=== PATIENT | male | born 1940 | race Caucasian/White ===

== ENCOUNTER 2019-12-28 00:03 | Inpatient (IN) | payer OTHER ==
[~2019-12-28] VITALS: Ht 170.2 cm; Wt 66.0 kg
[2019-12-28] MEDS ORDERED: LISINOPRIL20 MG PO (01:36)
[2019-12-28] MEDS ORDERED: TYLENOL325 MG PO (01:37)
[2019-12-28] MEDS ORDERED: LOPRESSOR50 MG PO (01:37)
[2019-12-28] MEDS ORDERED: COLACE100 MG PO (01:38)
[2019-12-28] MEDS ORDERED: TYLENOL EXTRA500 MG PO (01:39)
[2019-12-28] MEDS ORDERED: DICYCLOMINE HCL10 MG PO (01:40)
[2019-12-28] MEDS ORDERED: TRAZODONE HCL50 MG PO ×2 (01:43→01:45)
[2019-12-28] MEDS ORDERED: TRAZODONE HCL100 MG PO (01:44)
[2019-12-28 02:00] VITALS: BP 143/100
[2019-12-28] MEDS ORDERED: LIPITOR40 MG PO (02:31)
[2019-12-28] MEDS ORDERED: TRAMADOL 50 MG50 MG PO (02:31)
[2019-12-28] MEDS ORDERED: TOPROL XL50 MG PO (02:31)
[2019-12-28] MEDS ORDERED: XARELTO20 MG PO (02:32)
[2019-12-28] MEDS ORDERED: FOLIC ACID0.4 MG PO (02:32)
[2019-12-28] MEDS ORDERED: ASPIR 8181 MG PO (02:33)
[2019-12-28] MEDS ORDERED: FLOMAX0.4 MG PO (02:33)
[2019-12-28] MEDS ORDERED: VITAMIN B-12500 MCG PO (02:34)
[2019-12-28] MEDS ORDERED: BENADRYL ALLERG25 MG PO (02:35)
[2019-12-28] MEDS ORDERED: NAPROSYN500 M1 PO (02:35)
[2019-12-28] MEDS ORDERED: IBUPROFEN 800800 M1 PO (02:36)
[2019-12-28] MEDS ORDERED: ULTRAM50 MG PO (02:36)
[2019-12-28] MEDS ORDERED: PROAIR HFA8.5 GM INH (02:37)
[2019-12-28] MEDS ORDERED: ZOFRAN ODT4 MG DISSOLVE (02:37)
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
[2019-12-28 09:04] VITALS: BP 125/75
--- NOTE | 2019-12-28 15:22 | NUR ---
NOTED TO BE GRIMACING WITH ANY TYPE OF MOVEMENT WHEN ASSISTED OUT OF BED THIS AM-REQUIRES ASSIST OF 2-3 TO TRANSFER TO -FREQUENTLY ASKES TO USE URINAL AND HAS VOIDED APPROX 200-300 CC CLEAR YELLOW URINE VIA URINAL X 3 TODAY. REPORTS CHRONIC LOW BACK AND "ALL OVER" PAIN RATED A 9 ON 1-10 SCAL. REFUSES TO WALK MWITH PT HE WILL PICJ UP FEET OFF GROUND AND REFUSE TO STAND. DR. SIDHU CONTACTED AND ORDERS RECEIVED FOR TRAMADOL PRN-AWAITING MED FROM PHARMACY-CALLED X2. VS WNL-APPETITE GOOD-ORIENTED TO NAME ONLY.
[2019-12-28 19:39] VITALS: BP 155/66
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
[2019-12-28 23:09] VITALS: BP 155/66
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
--- NOTE | 2019-12-29 06:33 | NUR ---
Slept 6.6 hurs overnight. Used urinal in the night x3.
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
[2019-12-29 10:42] VITALS: BP 125/82
--- NOTE | 2019-12-29 15:14 | NUR ---
I heard a yell coming from the day room. I went to investigate, Jose Daniel was on the floor. I reviewed the video. Jose Daniel sitting in a w/c, he went to stand up and stepped over the leg of the w/c tripped and fell. VS B/P 135/[address] Abdalla was notified. The housekeeper cleaning cooking was notified. Jose Daniel c/o head ache. His pupils are equal and reactive. No injuries noted upon assessment.
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
[2019-12-29 22:31] VITALS: BP 125/82
--- NOTE | 2019-12-30 00:18 | NUR ---
Assumed care of patient this pm shift. Patient sitting in mileu in wheelchair. Patient irritable and states that he doesnt need help. Patient in hospital attire somewhat messy hair. Patient takes medications whole. Patient denies hi/si. Patients assessment shows clear breath sounds, active bowel sounds, and s1 s2 heard with auscultation. Patient needs constant redirection with cares. Patient is resistive towards staff. Patient has not been aggressive at this time. We will continue to monitor.
[2019-12-30 08:11] VITALS: BP 106/66
--- NOTE | 2019-12-30 13:52 | NUR ---
DINAH setn updatees to Nish Grijalva
--- NOTE | 2019-12-30 17:50 | NUR ---
Assumed care at 0700. Patient has few words, oriented to person, confused. Unable to specify pain location. Has been in the recliner out in the dayroom. Had a large yellow BM after lunch. He is compliant with medications. He does not initiate conversation. Mood is depressed with somber, sad affect.
[2019-12-30 22:01] VITALS: BP 140/78
--- NOTE | 2019-12-30 22:15 | NUR ---
Patient had 1 to 1 with RN at about 1819. He was informed to ask staff for help. He wanted to move to a different chair then would decline when other chairs/bed were offered. 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 Rn informed patient she would be back in touch with him shortly. Patient was left in dayroom in the recliner with wheels locked, sitting behind the sofa to view TV if he wanted. Nurse Aids Jaylin and Janelle were sitting at a table near and behind the patient. Per statement from Eduardo :"Patient attempted to stand up from his chair but forgot his legs are very weak and he slid under from the chair. He complained on (of) back pain after the fall. RN came to take vitals and assess the situation and patient. VS=T=98.3, P=65, R=15, WW=671/74, O2 sat=99%. Patient was transported to his room, assisted to bed and inspected for bruising/bleeding--none found. Family notified--sister Katharina Adhikari, who is a nurse; daughter Madison Head-medical DPOA. Sara, Pharmacist notified, awake overnight counselor notified, call placed into Dr. Rojas-after hours for courtesy notification. Nurse Umbrella Cutter Ghazala will be notified by text. Noteworthy: per sister-Katharina, the last facility told her that when patient did not realize staff were watching patient would walk about without difficulty, and that he used various objects in his home to hold onto to get around. Fall occurred 1829 tonight.
--- NOTE | 2019-12-31 00:35 | NUR ---
Assumed care of patient this pm shift. Patient irritable. Patients affect blunted. Patient denies hi/si. Patient is difficult to redirect. Patient has been bearing weight and walking from the bed to the bathroom. Patient has been notified to ask for help. Patient does not think he requires help. Patient is dressed neatly in hospital attire. Patient had a bowel movement this evening. Patient takes medications whole. Patients assessment shows clear breath sounds, active bowel sounds, and s1 s2 heard with auscultation. We will continue to monitor.
[2019-12-31 09:57] VITALS: BP 99/57
[2019-12-31 12:18] LABS: ABSOLUTE NEUTROPHILS 5.6 thou/uL (1.4-8.2); BASOPHILS 0.7 % (0.0-2.0); EOSINOPHILS 2.4 % (0.0-3.0); LYMPHOCYTES 20.1 % (24.0-44.0); MCH 31.5 pg (26.0-34.0); MCHC 33.2 g/dL (28.0-37.0); MONOCYTES 8.1 % (1.0-8.0); PLATELET COUNT 198 thou/uL (150-400); POLYS 68.7 % (36.0-66.0); RBC 4.11 mil/uL (4.50-6.00); RDW 14.6 % (10.5-14.5); WBC 8.1 thou/uL (4.0-11.0)
[2019-12-31 12:35] LABS: ALBUMIN 3.1 g/dL (3.4-5.0); ANION GAP 10 mmol/L (7-16); BUN 29 mg/dL (7-18); CALCIUM 9.6 mg/dL (8.5-10.1); CHLORIDE 104 mmol/L (98-107); CO2 24 mmol/L (21-32); CREATININE 1.3 mg/dL (0.7-1.3); GLUCOSE 76 mg/dL (74-106); POTASSIUM 4.3 mmol/L (3.5-5.1); SGOT 13 U/L (15-37); SGPT 17 U/L (30-65); SODIUM 138 mmol/L (136-145); TOTAL BILIRUBIN 0.5 mg/dL (<0.1-1.0); TOTAL PROTEIN 7.4 g/dL (6.4-8.2); TROPONIN-I <0.06 ng/mL (<0.06)
[2019-12-31 12:56] LABS: TSH 0.505 uIU/mL (0.358-3.740)
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
--- NOTE | 2019-12-31 14:26 | NUR ---
Assumed care at 0700. For over one hour various staff attempted to assist patient to the commode after lunch stating he would have to have a BM and urinate. He kept pshing the wheelchair away, yet wanting to use it for a stability prop, then holding the handles pulling it backwards. He made many references to wantin to take it apart and fix it. He was getting increasingly confsed. He complained of back pain. When the Tramadol and Olanzapine PO, PRN were brought to the patient he deaclined them stating they would not do any good. He was given a shot left deltoid-Olanzapine 5 mg.PRN-IM.
--- NOTE | 2019-12-31 16:33 | NUR ---
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
--- NOTE | 2019-12-31 18:00 | NUR ---
Assumed care at 0700. Compliant with AM meds. In the afternoon staff worked with him for about an hour trying to assist him with toileting--he was very resistive, wanting to do the opposite of what was best for him. He wants to transfer himself but without aid of staff. He gets easily frustrated, angry, cussing staff, doesn't like gait belt. Lap Kristi order was obtained and used. He seemed to settle down, lap kristi removed to test him. He kneeled down on the floor, assisted back to his w/c and lap kristi reapplied. No injury observed. During dinner he was removed from his dinner table for abd. x-ray, returned to table to finish his dinner. He was resistant to do this but held still for the test. EKG and Lab were done. A UA order was acknowledged and not obtained before shift change--passed on to next shift for collection.
[2019-12-31 19:38] VITALS: BP 102/54; BP 82/45
--- NOTE | 2020-01-01 01:30 | NUR ---
ASSESSMENT: PT REMAIN ALERT AND ORIENT TIMES TWO, CONFUSED TO PLACE/SITUATION. BEING COOPERATIVE FOR THE MOST PART DURING THE NIGHT. UA PENDING. UP IN WC IN THE DAYROOM FOR 2 HOURS. NO FALLS THIS SHIFT, BED AND WC ALARM SET. TRAMADOL GIVEN FOR GENERALIZED PAIN. OLANZAPINE GIVEN FOR SLIGHT AGITATION AT THE BEGINNING OF THE SHIFT. HR 64. DENIES CP AND SOB. NO AGGRESSIVE BEHAVIOR THIS SHIFT. SLOW PROGRESS TOWARDS DC GOALS, WILL CONTINUE TO MONITOR.
[2020-01-01 07:17] VITALS: BP 121/44
[2020-01-01 11:39] LABS: URINE BILIRUBIN NEGATIVE (Negative); URINE BLOOD 1+ (Negative); URINE CLARITY CLEAR; URINE COLOR YELLOW; URINE GLUCOSE-RANDOM* NEGATIVE (Negative); URINE KETONES NEGATIVE (Negative); URINE LEUKOCYTES-REFLEX NEGATIVE (Negative); URINE NITRITE-REFLEX NEGATIVE (Negative); URINE PROTEIN (DIPSTICK) NEGATIVE (Negative); URINE UROBILINOGEN 0.2 E.U./dl (0.2-1.0)
[2020-01-01 11:56] LABS: BACTERIA-REFLEX None Seen /HPF (None Seen); CRYSTALS None Seen /LPF (None Seen); HYALINE CASTS 0-3 Few /LPF (None Seen); SQUAMOUS None Seen /LPF (0-3); URINE RBC None Seen /HPF (0-2); URINE WBC-REFLEX None Seen /HPF (0-5)
--- NOTE | 2020-01-01 13:00 | EKG ---
[facility] [place] [address] ELECTROCARDIOGRAM REPORT Name: JESUS CARDONA Room #: [facility] ADM IN M.R.#: [id number] Admission: 12/28/19 Attend Phys: Edd Abdalla DO Discharge: Date of : 38 Report #: [id number] THIS REPORT FOR: cc: [facility] - Clinic physician unknown [facility] - Clinic physician unknown Hunter Porter MD ~ THIS REPORT FOR: //name// [facility] Test Date: 2019-12-30 Test Time: 10:58:27 Pat Name: JESUS CARDONA Department: Room: [facility] Gender: M Veterinarian Epidemiologist: LAURA : 1940 Requested By: Ayo Rojas Order Number: [id number] MD: Hunter Porter Measurements Intervals [place] Rate: 90 P: NE: QRS: 57 QRSD: 100 T: 43 QT: 386 QTc: 473 Interpretive Statements Atrial fibrillation No previous ECG available for comparison Electronically Signed On 01-01-2020 12:59:17 CDT by Hunter Porter [email or web address] <ELECTRONICALLY SIGNED> By: Hunter Porter MD 01/01/20 1259 1058 Hunter Porter MD /[place]
--- NOTE | 2020-01-01 13:06 | EKG ---
[facility] [place] [address] ELECTROCARDIOGRAM REPORT Name: JESUS CARDONA Room #: [facility] ADM IN M.R.#: [id number] Admission: 12/28/19 Attend Phys: Edd Abdalla DO Discharge: Date of : 38 Report #: [id number] THIS REPORT FOR: cc: [facility] - Clinic physician unknown [facility] - Clinic physician unknown Hunter Porter MD ~ THIS REPORT FOR: //name// [facility] Test Date: 2019-12-31 Test Time: 11:50:27 Pat Name: JESUS CARDONA Department: Room: [facility] Gender: M Econometrics Professor: Nikhil ALFARO : 1940 Requested By: Dayami Dale Order Number: [id number] MD: Hunter Porter Measurements Intervals Whick Rate: 101 P: OR: QRS: 62 QRSD: 84 T: 38 QT: 356 QTc: 462 Interpretive Statements Atrial fibrillation Borderline low voltage, extremity leads No previous ECG available for comparison Electronically Signed On 01-01-2020 13:04:27 CDT by Hunter Porter [email or web address] <ELECTRONICALLY SIGNED> By: Hunter Porter MD 01/01/20 1304 1150 1150 Hunter Porter MD /EPI
--- NOTE | 2020-01-01 19:00 | NUR ---
At 1848 was given Olanzapine 5 mg IM for agitation, increased confusion, removing lap kristi attempting to stand up--caught by the OVERHEAD CRANE INSPECTOR, angry, using foul language with staff attempting to replace the lap kristi. He refused PO PRN med.
[2020-01-01 20:22] VITALS: BP 102/61
--- NOTE | 2020-01-02 04:49 | NUR ---
Assumed care of pt @ 1900. Pt calm et cooperative this shift. Sedated at beginning of shift et was unable to take HS medications. VSWNL. Health assessment with no abnormalities noted at present time. Denies SI/HI at present time. Was given Tramadol PRN in early am for pain. Currently resting in recliner in dayroom with eyes closed. Will continue to monitor.
[2020-01-02 08:02] VITALS: BP 102/67
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
--- NOTE | 2020-01-02 11:30 | NUR ---
In 1:1 patient denied SI, AH, VH. He said he wanted to kill "all those people" and gestured toward all the patients in the dayroom. When asked why, what triggered that idea he said, "It's because they are all banging." Note no one was banging on the table, nor was anyone making any loud noises.
--- NOTE | 2020-01-02 12:20 | NUR ---
Patient was wandering in his w/c into other patient's rooms. He was brought closer to the nursing station. He does not care to socialize with any of the other peers.
--- NOTE | 2020-01-02 13:27 | NUR ---
No RT group d/t COVID 19 precautions. Patient was self propelling his wheelchair in halls upon approach. He greeted staff with flat affect but was accepting of conversation as he continued to wander halls, looking for the exit. Conversation unclear in context. No aggression.
--- NOTE | 2020-01-02 18:37 | NUR ---
Has tried to get out of w/c a few times without summoning help. He has remained in the w/c wheeling himself around the unit. He was encouraged to try to talk with peers which he has not done. He has remained awake throughout the day shift. Patient talked with his daughter on the phone long distance. He initially knew her then later denied she was his daughter. currently he is tying his pillowcase into knots. Daughter spoke with this nurse. He has been sitting and watching the nursing station.
[2020-01-02 18:40] VITALS: BP 125/73
[2020-01-02 19:53] VITALS: BP 125/73
--- NOTE | 2020-01-03 05:41 | NUR ---
[facility] care 01-02-201914 Noted at 1850 pt on floor on all four crawling around, 1949 Pt AAOx1 with agitation but allowed nursing assessment, please refer to Intervertions for more information. Pt reported pain level at 8 on lower back and left knee, 2020 Pt became combative and two liptor and tramadol but then starting refusing the rest of his medication and elevation of agressive behavior, pt refused zyprexa and IM shot was delivered, approximately 40 to 90 minutes reapproached and all medication was completed. DIRECTOR OF ACADEMIC SUPPORT reported that pt was laying on floor with his pillow, when nursing tried to assisted pt became combative and aggressive with verbal abuse, then complied with sitting up and going to bed. During rounds pt was resting with eyes closed in supine position. zero acute distress noted through out shift.
[2020-01-03 08:55] VITALS: BP 97/59
[2020-01-03 09:25] VITALS: BP 108/76
--- NOTE | 2020-01-03 12:10 | NUR ---
In WC pushing self t/o unit without s/o distress. Alert and orientated to self, states he doesn't care where he is or what day it is. Denies SI/HI. Occassional coherent speech but most often it is confused. No speech/behavior suggestive of SI/HI. States he wants to go home. Breath sounds clear t/o. Regular HR auscultated. Color pink with brisk capillary refill and palpable peripheral pulses, +1 edema in lower extremities bilaterally. Active bowel sounds over soft, rounded abdomen. Last stool documented was 4/10, prn dose of milk of magnesia given late morning. Remains calm and cooperative, compliant with meds. Continues to push self in WC.
--- NOTE | 2020-01-03 12:36 | NUR ---
No group d/t COVID-19 precautions. Patient observed wandering hallway and jiggling door handles. RETAIL KEY HOLDER attempt 1;1 to provide structured leisure but patient was not accepting of this.
--- NOTE | 2020-01-03 13:36 | NUR ---
RASHAWN spoke with Laurita at [facility] and she stated that unless this pt is no longer a 1:1 and is tkaing meds orally, and is non combative and non exit seeking- they will not accept him back. Rashawn then called and left a VM with tony and conveyed this inforamtion and asked for a call back to discuss the LTC options.
--- NOTE | 2020-01-03 16:22 | NUR ---
Rashawn and Dr fuentes spoke with tony burger concerns that [facility] cannot meet his increasing needs. Tony agreed to RASHAWN seeking memory care with medicaid for this pt.
[2020-01-03 19:52] VITALS: BP 80/39
--- NOTE | 2020-01-04 06:31 | NUR ---
ASSUMED CARE ON 01/03/20 @ 1900. COOPERATED WITH ASSESSMENT, COMPLIANT WITH MEDS. PROVIDED OLANZAPINE 5MG FOR ANXIETY AND RESTLESSNESS. CONTINUES TO HAVE A BRUISE TO HIS R BUTTOCK. BED IN LOW POSITION, BED ALARM SET, WILL CONTINUE TO MONITOR FOR PATIENT SAFETY. SLEPT 7.2 HOURS OVERNIGHT.
[2020-01-04 08:07] VITALS: BP 100/68
--- NOTE | 2020-01-04 11:27 | NUR ---
SW sent referrals to [facility], [facility], and [facility] of [place].
--- NOTE | 2020-01-04 12:46 | NUR ---
Rashawn spoke with [facility] and they are interested in taking this pt once d/c is closer to make a decision
--- NOTE | 2020-01-04 12:47 | NUR ---
[facility] is not taking medicaid pt for LTC at this time
--- NOTE | 2020-01-04 15:47 | NUR ---
Pt was denied at [facility].
--- NOTE | 2020-01-04 16:11 | NUR ---
Approximately 1530, Jose Daniel was found on the floor in room 528. His was lying on his L side. He was near the bathroom. The w/c is in the doorway of the room. He denied any pain. VSS. Dr. Abdalla was notified. No injuries were noted.
--- NOTE | 2020-01-04 18:10 | NUR ---
SPEECH INCONPREHENSIBLE. INCONTINENT OF URINE EXPELLED LARGE BM IN TOILET AND THEN FELL WHEN COMING OUT OF BATHROOM. DENIES INJURY FOUND ON FLOOR. ATE ALL 3 MEALS IN DINNING ROOM. ENCOURAGED TO USE W/C FOR MOBILITY SINCE HE IS UNSTEADY ON FEET. DENIES PAIN. ALERT AND OREIENTED TO NAME ONLY.
[2020-01-04 19:23] VITALS: BP 178/82
--- NOTE | 2020-01-04 23:19 | NUR ---
Assumed care of patient this pm shift. Patient sitting in wheel chair in [facility]. Patient appears to be confused but mostly cooperative. Patient denies pain. Patient denies hi/si. Patient took medications whole but was unable to swallow them. Pills were then crushed and put in applesauce and patient was able to swallow them. Patients affect is blunted. Patient is alert and oriented to self only. Patient is impulsive and can be resistive to cares. Patients assessment shows clear breath sounds, active bowel sounds, and s1 s2 heard with auscultation. Patients appearance is clean. We will continue to monitor.
[2020-01-05 07:42] VITALS: BP 105/68
--- NOTE | 2020-01-05 09:36 | NUR ---
New order received read back and verified from Dr. Abdalla 1) may use lap kristi as fall prevention. 2) if need to use lap kristi as a restraint notify the physician for orders.
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
--- NOTE | 2020-01-05 13:39 | NUR ---
NOTED TO HAVE FACIAL GRIMACING WITH REPOSITIONING THIS AM-WHEN QUESTIONED DOES REPORT BACK AND LEGS "HURTIN LIKE THE DICKENS" UNABLE TO RATE PAIN D/T COGNITIVE DEFECITS,EXPRESSIVE APHASIA,ULTRAM 50MG GIVEN PO PRN AT 0900 ALONG WITH SCHEDULED AM MEDS-PT REFUSED MIRALAX AND SENNA,WAS INCONTINENT OF LARGE AMOUNT LOOSE STOOL-REQUIRES ASSSIT OF 4 STAFF TO CHANGE BRIEF,PROVIDE PERINEAL CARE-NO REDNESS OR SKIN BREAKDOWN NOTED-BARRIER CREAM APPLIED. DURING PERINEAL CARE IS NOTED TO HAVE LARGE PURPLISH-BLUE BRUISE ACROSS UPPER BUTTOCKS AND EXTENDING INTO RIGHT LATERAL THIGH-DR. SIDHU AND DR. CARPENTER NOTIFIED. HAS REMIANED LABILE,IRRITABLE AT TIMES-ORIENTED TO NAME ONLY-CONVERSATION RAMBLING NON-GOAL DIRECTED. VS STABLE. EATING FAIR WITH ASSISTANCE,QUEING FROM STAFF. REMAINS IMPULISVE ATTEMPTING TO GET UP ON OWN DESPITE ATAXIA-LAP NORMA APPLIED AT 1100 PER MD ORDER-WILL MONITOR. REMAINS HIGH FALLS RISK-ON FALLS PROTOCOL.
[2020-01-05 15:46] LABS: HEMOGLOBIN 12.2 gm/dL (14.0-18.0)
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
[2020-01-05 20:15] VITALS: BP 105/68
--- NOTE | 2020-01-06 05:23 | NUR ---
Assumed care 01-05-201914; pt supine resting with eyes closed, Pt skin w/d, RR even and non-labored on RA. Pt Stated "Go Away" 2150 PT supine with eyes open AAOx1, Pt confused and asked were he was at, reassured pt that he was at [facility] and we were going to take care of him. Pt stated "Your going to kill me" Pt was reassured that we would be checking on in in 12 minutes by the DRAGLINE ENGINEER and this RN would be doing rounds throughout the evening. Observed pt easily reposition to sitting position, but noted weakness in LE. Pt lungs bertrand clear and diminished, RR even and non-labored on RA. ABD WNL. Pt rates pain 8 onn 0-10 scale then upon reassessment rates at a 4 on 0-10 scale. Pt denies SI/HI/VAH. 0530 pt sitting on side of bed eyes open, DRAGLINE ENGINEER assisted to toilet and reported was give that pt was being combative during assistance, pt was moved to day room at 0540. Zero acute distress noted.
[2020-01-06 06:53] LABS: ABSOLUTE NEUTROPHILS 4.5 thou/uL (1.4-8.2); BASOPHILS 0.6 % (0.0-2.0); EOSINOPHILS 2.6 % (0.0-3.0); HEMATOCRIT 37.4 % (42.0-52.0); HEMOGLOBIN 12.2 gm/dL (14.0-18.0); LYMPHOCYTES 24.3 % (24.0-44.0); MCH 31.3 pg (26.0-34.0); MCHC 32.7 g/dL (28.0-37.0); MCV 95.7 fL (80.0-100.0); MONOCYTES 8.1 % (1.0-8.0); PLATELET COUNT 212 thou/uL (150-400); POLYS 64.4 % (36.0-66.0); RDW 14.1 % (10.5-14.5)
[2020-01-06 07:12] LABS: CREATININE 1.4 mg/dL (0.7-1.3); POTASSIUM 4.3 mmol/L (3.5-5.1)
[2020-01-06 08:35] VITALS: BP 124/78
--- NOTE | 2020-01-06 15:30 | NUR ---
Assumed care at 0700. Does not offer conversation. Non compliant with AM medications, given IM Olanzapine-pyxis drawer needed repair, sterile water ob-tained from another unit. Sister called and talked with nurse for update. She is aware he will be going to another facility when it can be arranged. No aggressive behavior. Paranoid, won't take pills. requested nurse give Tylenol for pain. Patient reluctant to take pain med. Nurse put med in his mouth and gave him water. He is not taking in very much food or fluids. No physical aggressive behavior this shift. Wheels himself the unit.
[2020-01-06 19:29] VITALS: BP 106/66
[2020-01-07 06:27] LABS: CALCIUM 9.3 mg/dL (8.5-10.1); CREATININE 1.4 mg/dL (0.7-1.3)
--- NOTE | 2020-01-07 14:28 | NUR ---
0745 Very sleepy this AM. Awakens to stimuli. Orientated to name only. No speech/behavior suggestive of SI/HI. Able to eat some breakfast independently. Compliant with meds. Breath sounds clear t/o. Color pink with brisk capillary refill and palpable peripheral pulses. Reg HR auscultated. Brief dry. Active bowel sounds over soft, rounded abdomen. Large aging bruise over R buttock to coccyx. Requires 2 staff to transfer to . 1430 Sleeping without s/o distress.
--- NOTE | 2020-01-07 16:53 | NUR ---
Received message that patient's daughter called asking for an update regarding placement of patient upon discharge. DINAH returned call and left a message with TRAN Wallace [phone] asking her to call DINAH.
[2020-01-07 23:28] VITALS: BP 110/88
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
[2020-01-08 08:22] VITALS: BP 112/73
--- NOTE | 2020-01-08 09:33 | NUR ---
Assumed care at 0700. He took his meds crushed in pudding, he declined the Miralax after a couple of sips. He wants to come into the nursing station. He self propels in the w/c with lap kristi on due to either falling or putting self on the floor to crawl around. He is oriented only to self.
--- NOTE | 2020-01-08 17:04 | NUR ---
DINAH faxed updates to [facility].
--- NOTE | 2020-01-08 18:28 | NUR ---
Wheels self around in w/c. Judi berry is reuired as he will not tell staff when he needs to use restroom and is incontinent. Has had 2 loose brown stools. He is starting to eat some better. Legs are still very weak. Has trouble standing on his own power. Needs 2-3 people to assist with toileting cares. Tried at least 5 time to go into the former room where he was (now in use by female patient-which was explained to him several times and was redirected to his room next door.
[2020-01-08 19:52] VITALS: BP 130/76
--- NOTE | 2020-01-08 23:36 | NUR ---
ASSUMED CARE ON 01/08/20 @ 1930, SEATED IN W/C WITH LAP NORMA IN PLACE, PROPELLS SELF IN W/C INDEPENDENTLY. COOPERATED WITH ASSESSMENT, FINDING AUSCULTATED WNL. ORIENTED TO SELF ONLY, UNABLE TO GET VERBAL RESPONSE TO MENTAL HEALTH QUERIES. REPEATEDLY PROPELS SELF INTO OTHER PATIENTS ROOMS, ELICITING UNWELCOME ENERGY CONSERVATION TECHNICIAN. TRIES TO DRIVE HIS W/C INTO OTHER PATIENT'S W/C, HAD TO BE SEPERATED. PRN OLANZAPINE 5MG GIVEN FOR AGITATION. DEPAKOTE ORDER CHANGED TO SPRINKLE FORM, 500 MG BID D/T REFUSING PO MEDS. COMPLIANT WITH MEDICATION CRUSHED AND SPRINKLED ON PUDDING. STOOL SOFTENER HELD DUE TO X2 SOFT BM TODAY. IN BED AT THIS WRITING, BED IN LOW POSITION, BED ALARM SET, 3 RAILS UP. EYES CLOSED, RESPIRATIONS EVEN AND UNLABORED.
--- NOTE | 2020-01-09 06:37 | NUR ---
SLEPT 6 HOURS OVERNIGHT. PROVIDED INCONTINENT CARE, DRESSED IN DAY CLOTHES, TRANSFERRED X 2 ASSIST TO THE DAY ROOM. CHAIR ALARM AND LAP NORMA IN PLACE.
[2020-01-09 07:30] VITALS: BP 156/93
--- NOTE | 2020-01-09 10:30 | NUR ---
Assumed care at 1030. No aggressive behavior yet today. He self-propels w/c around the unit halls. He mumbles with a majority of his conversation not clear enough to comprehend. Says he has pain all over and he declines to take any pain medication-Tramadol or Tylenol. He fed himself. He took medications crushed in applesauce. Stool softener and Miralax held this AM due to loose stools x 2 yesterday.
--- NOTE | 2020-01-09 11:45 | NUR ---
Rashawn called and spoke with christina [phone] ruben Tariq [facility]. They are still considering him and want to see much less intermitten aggression. Rashawn will f/u on
[2020-01-09 19:52] VITALS: BP 114/61
[2020-01-09 21:00] VITALS: BP 114/61
--- NOTE | 2020-01-10 04:07 | NUR ---
Assumed pt care at 1900. Pt A/OX1, VSS. Up on W/C at beginning of shift propelling self around unit w/o problems. Compliant in taking his HS meds. Denies pain on assessment or SI/HI. LSCTA. Assist of 2 with ADLs,incontinent of B&B. Pt resting quietly in bed at this time w/o any distress noted, fall precautions in place will continue to monitor pt.
[2020-01-10 07:46] VITALS: BP 140/77
--- NOTE | 2020-01-10 11:08 | NUR ---
PATIENT CARE ASSUMED AT 1900 THIS MORNING. PATIENT IN WHEELCHAIR - MANUVERS AROUND IN WHEELCHAIR. BRUISE ON BUTTOCK APPEARS TO BE HEALING. NO PAIN VOICED - FIXATED GETTING INTO [facility] ROOMS. PATIENT APPETITE GOOD - COMPLETED BREAKFAST. MEDICATION COMPLIANT - ADMINISTERED ONE PILL AT A TIME IN APPLESAUCE. QUIET - ASSISTED TO BATHROOM - CAN STAND BUT RESISTIVE WITH STAFF WHEN DIRECTED TO AID BY WEIGHT BEARING ON LEGS. COMPLAINED OF NO PAIN WHEN ASSESSED.
[2020-01-10 20:05] VITALS: BP 99/78
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
[2020-01-11 08:31] VITALS: BP 101/59
--- NOTE | 2020-01-11 13:09 | NUR ---
PATIENT CARE ASSUMED [id number] AM - PATIENT UP ON UNIT MANUVERING AROUND IN WHEELCHAIR. STILL RESISTS WEIGHTBEARING WHEN TOLLETING. PATIENT HAS BEEN CALM AND COOPERATIVE. HAD BOWEL MOVEMENT - MAKES NEEDS KNOWN. REACHES DOWN ON FLOOR REACHING FOR UNSEEN OBJECTS AT TIMES.
--- NOTE | 2020-01-11 14:12 | NUR ---
DINAH setn updates to [facility] . d/c possibly Thursday if behaviors continue to improve.
[2020-01-11 20:06] VITALS: BP 121/79
--- NOTE | 2020-01-11 23:09 | NUR ---
Assumed care of patient this pm shift. Patient in good spirits resting in bed. Patient denies hi/si. Patient denies pain. Patient is alert and oriented to self. Patient is in clean clothes. Patient ambulates via wheel chair. Patient takes medications in applesauce. Patients assessment shows clear breath sounds, active bowel sounds, and s1 s2 heard with auscultation. No concerns from patient at this time. We will continue to monitor.
--- NOTE | 2020-01-12 08:23 | NUR ---
RT progress note- Patient continues to be seen in the milieu though he wanders in/out of other patients rooms. Easier to redirect. Patient's concentration is poor making it difficult for him to focus for 1;1 visits. He does accept conversation (mechanics, etc) while walking along side him in the halls.
[2020-01-12 09:03] VITALS: BP 153/78
--- NOTE | 2020-01-12 09:44 | NUR ---
Followup: remains on [facility] unit. On [facility], avon altered chopped diet. Intake at meals is inconsistent and fair to good 60-100%. Wt down 3 lb over ~11 days/2%. Will trial ensure enlive 1x daily and continue to monitor intake and wt trends Continues at low nutrition risk for now.
--- NOTE | 2020-01-12 15:18 | NUR ---
ASSUMED CARE OF PATIENT THISAM FOR THE DAYSHIFT. PATIENT VSS THIS AM. PTIENT DENIES PAIN THIS SHIFT. PATIENT ASSISTED UP TO RECLINER WITH LAP NORMA IN PLACE. PATIENT COOPERATIVE WITH TAKING MEDS WITH APPLESAUCE. PATIENT CAN FEED HIMSELF. PATIENT HAS BEEN CALM THIS SHIFT. NEW ORDER FOR SUPPLEMENTS AT LUNCH. WILL CONTINUE TO MONITOR.
[2020-01-12 20:36] VITALS: BP 95/65
[2020-01-12 22:53] VITALS: BP 95/65
--- NOTE | 2020-01-13 00:25 | NUR ---
Assumed care of patient this pm shift. Patient in good spirits. Patient sitting in mileu in a reclining chair. Patients affect blunted. Patient denies hi/si. Patient is incontinent of bowel and bladder, wears brief. Patient becomes irritable with some cares. Patients assessment shows clear breath sounds, active bowel sounds, and s1 s2 heard with auscultation. Patient had a bm this evening. We will continue to monitor.
[2020-01-13 08:01] VITALS: BP 99/61
--- NOTE | 2020-01-13 09:10 | NUR ---
DINAH recieved a call from Indu at [facility], . Indu requested an update on Pt's progress as they are still intrested in possibly accepting Pt. DINAH emailed updates to Indu at [phone].
--- NOTE | 2020-01-13 14:50 | NUR ---
DINAH recieved a phone call from Pt's daughter, Madison. Madison was asking about discharge and placement for the Pt. DINAH informed that Thursday or thursday is being looked at for discharge. Also that [facility] was interested in accepting Pt. Madison seemed happy to get this information. Madison was also intrested in new medication Pt was started on and Pt's incontinence. SW encouraged Madison to speak with Dr. Leo about new medication and its side effects. Madison seemed okay with this information and had no further questions or concerns.
--- NOTE | 2020-01-13 18:07 | NUR ---
ORIENTED TO NAME ONLY. VERY QUIET SITTING IN W/C MOST ALL DAY. POOR APPETITE FOR MEALS. DENIES PAIN. TOOK MEDICATIONS WITH JELLY.
[2020-01-13 19:41] VITALS: BP 100/63
--- NOTE | 2020-01-14 01:42 | NUR ---
PATIENT ALERT AND ORIENTED TO NAME. SITTING IN JAYLA-CHAIR IN THE DAY AREA AT BEGINNING OF SHIFT. COOPERATIVE WITH MEDICATION THAT WAS CRUSHED AND MIXED WITH PUDDING. ASSISTED TO HIS ROOM TO BED W/O INCIDENT. RESTING QUIETLY. WILL MONITOR.
--- NOTE | 2020-01-14 02:41 | NUR ---
PATIENT BECAME RESTLESS AT APPROX. 0150 AFTER AWAKENING AND WAS PLACED IN A JAYLA-CHAIR WITH A LAP NORMA IN THE DAY ROOM. RESTING QUIETLY. WILL MONITOR.
[2020-01-14 07:51] VITALS: BP 99/60
--- NOTE | 2020-01-14 09:45 | NUR ---
Assumed care at 0900. Patient is oriented to self. He is not c/o pain. He is dozing in his chair. He is in the recliner with lap kristi which he can remove at will. He fed himself breakfast.
--- NOTE | 2020-01-14 18:36 | NUR ---
Speaks in a whisper. Feeds himself dinner. No voiced complaints. Ppaucity of conversation, poverty of thought.
[2020-01-14 20:00] VITALS: BP 145/81
--- NOTE | 2020-01-15 00:52 | NUR ---
PT CARE ASSSUMED AT 1915 WITH PT IN THE ACTIVITY ROOM WITH PEERS WATCHING TV.PT REMAINED CALM IN HIS RECLINER.PT MEDS ADMINISTERED WITH APPLESAUCE AND PT TOOK MEDICATION WITH NO ISSUES.PT WAS ASSISTED TO BED BY STAFF.PT HAD A LARGE BM .PT APPEARED TO BE IN NO ACUTE DISTRESS.WILL CONTINUE TO [facility]
--- NOTE | 2020-01-15 11:33 | NUR ---
COOPERATIVE WITH TAKING AM MEDICATIONS AND FED SELF BREAKFAST GOOD APPETITE NOTED. ORIENTED TO NAME ONLY. AFFECT CONSTRICTED-SPEECH FRAGMENTED AND NON-GOAL DIRECTED. IS NOTED TO BE GRIMACING WHEN ASSISTED OUT OF WC FOR TOILETING-RESISITIVE WITH NOTED INCREASED ANXIETY/AGITATION WITH TRANSFERS AND CARES. ULTRAM 50MG GIVEN PO PRN AT 0900 FOR ABOVE NOTED -UNABLE TO RATE C/O PAIN NUMERICALLY ON F/U.
--- NOTE | 2020-01-15 17:13 | NUR ---
HAS MILD RESISTANCE/AGITATION WITH TRANSFERS AND CARES OTHERWISE IS COOPERATIVE,NO ACUTE AGITATION NOTED OR REPORTED. REMAINS CONFUSED BUT APPEARS LESS IMPULSIVE NOT ATTEMPTING TO GET UP ON OWN.
[2020-01-15 19:23] VITALS: BP 152/94
--- NOTE | 2020-01-16 02:24 | NUR ---
RECEIVED IN BED SLEEPING. AROUSABLE TO VERBAL STIMULI. TOOK MEDS W/O DIFFICULTY. NO S/S ACUTE DISTRESS NOTED OR REPORTED AT THIS TIME. WILL CONT TO MONITOR FOR ANY CHANGES IN CONDITION.
[2020-01-16 08:37] VITALS: BP 100/60
--- NOTE | 2020-01-16 10:03 | NUR ---
Assumed care at 0700. Does not offer conversation. Knew the month, and year. Denies SI/HI. No indications of AH/VH/delusions. Sleeps when not eating. Speaks in a whisper. Pleasant, paucity of conversation.
--- NOTE | 2020-01-16 13:33 | NUR ---
DINAH spoke with pt's dght and she was reluctant to send her dad to [facility] she worked there 20 years ago. Sw reassured her that there is new management and that he was fortunate to find placement during a pandemic , wit his behaviors and med pending. She agreed. Dinah then called [facility] and spoke with Indu. D/C is conifmred for 01/16 at 11:30 am. Dinah reported this to nursing. Sw completed Tere 124 C , no level II is needed. DINAH also completed the COVID 19 screen provided by [facility].
--- NOTE | 2020-01-16 18:00 | NUR ---
Pt. has been asleep in between meals throughout the shift in his recliner. He denied SI/HI/AH/VH. Too somnolent to assess delusions. Cooperative with meds crushed in applesauce.
[2020-01-16 19:47] VITALS: BP 104/62
--- NOTE | 2020-01-17 01:13 | NUR ---
Assumed care on 01/16/20 @ 1900, seated in recliner in the day room, lap kristi in place. Cooperated with assessment and compliant with medictions. Spoke answers to questions, however speach was not complete sentences, and unable to assess mental health well being. Oriented to person and only. Retired to bed and is sleeping at this writing. Will continue to monitor q 12 minutes for patient safety. Bed in low position, bed alarm set.
[2020-01-17 02:49] VITALS: BP 104/62
[2020-01-17 09:00] VITALS: BP 100/60
[2020-01-17 09:07] VITALS: BP 100/60
--- NOTE | 2020-01-17 09:25 | NUR ---
RASHAWN made packet and left it on the chart. Rashawn faxed d/c summary and orders to [facility] left the FAX confimration with that packet on the chart to be scanned in EHR. RASHAWN completted the DA 124 C and pt does not trigger a level II, and the COVID 19 screen was negative and signed that pt has no signs or symptoms. This was reported to nursing.
[2020-01-17] MEDS ORDERED: ASPIRIN325 PO (10:01)
[2020-01-17] MEDS ORDERED: DEPAKOTE SPRIN125 MG PO (10:02)
[2020-01-17] MEDS ORDERED: ZYPREXA 5 MG TAB5 M1 PO (10:03)
--- NOTE | 2020-01-17 11:29 | NUR ---
0745 Sitting on side of bed without s/o distress. No verbalizations to questions, does alert to name. Obeys simple commands. Compliant with meds and assessment. Able to assist with transfer to recliner but needed additional person to help pull up pants. No speech or behavior suggestive of SI/HI. Breath sounds clear t/o. Reg HR auscultated. Color pink with brisk capillary refill and palpable peripheral pulses. Feet cool to touch, socks applied. Brief dry of urine but was incontinent of soft, brown stool medium size. Active bowel sounds over soft, rounded abdomen. Large fading bruises to hips. 1045 Report called to [facility]. Spoke with Brii Joshi, documents faxed per request. Msg left for DPOA to call. 1120 Attempted to give discharge instructions to pt. without success. Did speak in low voice but it was confused speech. Attempted to sign form but was not legible. Spoke with DPOA on phone, states she is in agreement with transfer. Transferred to and brought to van transport by [facility] with belongings and packet.
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
== END 2020-01-17 11:25 | DRG 57 ==
LOC: SBH
PROVIDERS: Hospitalist; Internal Medicine; ADMIT Psychiatry & Neurology Psychiatry
DX: G30.9 Alzheimer's disease, unspecified (principal); F02.81 Dementia in other diseases classified elsewhere, unspecified severity, with behavioral disturbance; I48.20 Chronic atrial fibrillation, unspecified; F17.210 Nicotine dependence, cigarettes, uncomplicated; I10 Essential (primary) hypertension; E78.5 Hyperlipidemia, unspecified; K59.00 Constipation, unspecified; M19.90 Unspecified osteoarthritis, unspecified site; I25.10 Atherosclerotic heart disease of native coronary artery without angina pectoris; Z79.899 Other long term (current) drug therapy; Z79.82 Long term (current) use of aspirin; Z95.5 Presence of coronary angioplasty implant and graft
CPT/HCPCS: 10880